=== PATIENT | male | born 1975 | race Caucasian/White ===

== ENCOUNTER 2016-10-03 14:14 | Observation (INO) | payer SELFPAY ==
[~2016-10-03] VITALS: Ht 172.7 cm; Wt 108.2 kg
[2016-10-03 15:15] LABS: EOSINOPHIL (%) 0.4 % (0-5); EOSINOPHIL COUNT 0.1 K/uL (0-0.3); HEMATOCRIT 47.3 % (38.0-50.0); IMMATURE GRANULOCYTE (%) 0.3 % (0.0-0.7); LYMPHOCYTE COUNT 1.8 K/uL (1.0-2.8); MCH 30.8 PG (29.0-34.0); MCHC 35.3 G/DL (30.0-36.0); MCV 87.1 FL (86-99); MEAN PLAT.VOLUME 11.5 uM^3 (9.0-12.4); MONOCYTE (%) 11.5 % (3-12); MONOCYTE COUNT 1.3 K/uL (0-0.8); NEUTROPHIL (%) 71.5 % (45-76); PLATELET COUNT 248 K/uL (156-360); RBC DIS.WIDTH-CV 12.3 % (11.8-14.6); RBC DIS.WIDTH-SD 38.9 % (39-53); RED BLOOD COUNT 5.43 M/uL (4.00-5.50); WHITE BLOOD COUNT 11.2 K/uL (4.1-10.2)
[2016-10-03 15:33] LABS: PROTHROMBIN TIME 10.5 (9.2-11.2); PTT 30.4 (25-32)
[2016-10-03 15:35] LABS: CHLORIDE 105 mEq/L (99-109); POTASSIUM 3.9 mEq/L (3.7-5.4); SODIUM 140 mEq/L (136-147)
[2016-10-03 15:36] LABS: AMYLASE 64 IU/L (1-118)
[2016-10-03 15:37] LABS: GLUCOSE 104 mg/dL (70-99)
[2016-10-03 15:38] LABS: ANION GAP 10 MEQ/L (2-14)
[2016-10-03 15:39] LABS: TOTAL BILIRUBIN 0.9 mg/dL (0.0-1.0)
[2016-10-03 15:40] LABS: ALKALINE PHOSPHATASE 81 IU/L (3-129); SERUM ETHYL ALCOHOL < 10 mg/dL
[2016-10-03 15:41] LABS: GFR ESTIMATE (CALCULATED) > 59 mL/min/
[2016-10-03 15:42] LABS: UREA NITROGEN (BUN) 11 mg/dL (9-23)
[2016-10-03 15:43] LABS: TROP-I INTERPRETATION NEGATIVE; TROPONIN-I 0.02 ng/mL (0.0-0.30)
[2016-10-03 15:44] LABS: LIPASE 23 U/L (1.0-51.0)
[2016-10-03 23:29] LABS: CREATINE KINASE 121 IU/L (1-294); TOTAL CK 121 IU/L (1-294)
[2016-10-03 23:30] LABS: TROP-I INTERPRETATION NEGATIVE; TROPONIN-I 0.02 ng/mL (0.0-0.30)
[2016-10-04 07:29] LABS: EOSINOPHIL (%) 0.4 % (0-5); HEMATOCRIT 44.8 % (38.0-50.0); IMMATURE GRANULOCYTE (%) 0.4 % (0.0-0.7); LYMPHOCYTE COUNT 1.8 K/uL (1.0-2.8); MCH 31.4 PG (29.0-34.0); MCHC 35.5 G/DL (30.0-36.0); MCV 88.5 FL (86-99); MEAN PLAT.VOLUME 11.6 uM^3 (9.0-12.4); MONOCYTE (%) 12.4 % (3-12); MONOCYTE COUNT 1.4 K/uL (0-0.8); NEUTROPHIL (%) 70.9 % (45-76); PLATELET COUNT 218 K/uL (156-360); RBC DIS.WIDTH-CV 12.7 % (11.8-14.6); RBC DIS.WIDTH-SD 41.2 % (39-53); RED BLOOD COUNT 5.06 M/uL (4.00-5.50); WHITE BLOOD COUNT 11.2 K/uL (4.1-10.2)
[2016-10-04 07:58] LABS: TROP-I INTERPRETATION NEGATIVE; TROPONIN-I 0.02 ng/mL (0.0-0.30)
[2016-10-04 07:59] LABS: CK-MB 0.8 ng/mL (0.0-4.9)
[2016-10-04 08:06] LABS: Estimated Average Glucose 105 mg/dL (70-123); HEMOGLOBIN A1c (GLYCOHEMOGLOB) 5.3 % HGB (Below 5.7)
[2016-10-04 08:17] LABS: ANION GAP 7 MEQ/L (2-14); CHLORIDE 108 MEQ/L (99-109); CREATINE KINASE 108 IU/L (1-294); GFR ESTIMATE (CALCULATED) > 59 mL/min/; GLUCOSE 112 mg/dL (70-99); HDL CHOLESTEROL 39 MG/DL (Desirable>=40); LDL CHOLESTEROL 111 mg/dL (Desirable<100); NON-HDL CHOLESTEROL 123 mg/dL (Desirable<160); POTASSIUM 3.9 MEQ/L (3.7-5.4); SAMPLE HEMOLYSIS CHECK 0; SAMPLE ICTERIC CHECK 0; SAMPLE LIPEMIA CHECK 0; SODIUM 139 MEQ/L (136-147); TOTAL CHOLESTEROL 162 mg/dL (Desirable<200); TOTAL CK 108 IU/L (1-294); TRIGLYCERIDES 60 MG/DL (Normal: <150); UREA NITROGEN (BUN) 8 mg/dL (9-23)
[2016-10-04 08:44] VITALS: BP 111/62
[2016-10-04 12:00] VITALS: BP 125/68
[2016-10-04] MEDS ORDERED: LISINOPRIL10 MG PO (13:45)
[2016-10-04] MEDS ORDERED: PANTOPRAZOLE SO40 MG PO (13:45)
[2016-10-04 14:45] VITALS: BP 131/72
== END 2016-10-04 15:00 | disposition home or self-care (01) ==
LOC: EME 14:14 → CATH 15:20 → 2SOUTH 15:59
PROVIDERS: Emergency Medicine; Internal Medicine Cardiovascular Disease
DX: R07.89 Other chest pain (principal); Z87.891 Personal history of nicotine dependence; I10 Essential (primary) hypertension; Z82.49 Family history of ischemic heart disease and other diseases of the circulatory system; K21.9 Gastro-esophageal reflux disease without esophagitis
CPT/HCPCS: 71275; 80048; 80048 91; 80053; 80061; 81003; 82150; 82550; 82550 91; 82553; 83036; 83690; 84484; 85025; 85347; 85610; 85730; 86900; 86901; 93005; 93306; 99281; 99284; C1769; C1887; G0378; G0480; J1644; J2250; J3010; J7030